=== PATIENT | male | born 1960 ===

== ENCOUNTER 2017-10-09 20:15 | Emergency (ER) | payer SELFPAY ==
[2017-10-09 20:58] VITALS: BP 106/67; RESP 18; TEMP 98.6; O2SAT 98
[2017-10-09] MEDS ORDERED: Alum-Mag Hydrox-Simethicone Susp (30 mL) PO ONE (21:37)
--- NOTE | 2017-10-09 21:44 | ED PDOC ---
HPI: Abdomen Time Seen by Provider: 10/09/17 21:21 Chief Complaint (Nursing): Abdominal Pain Chief Complaint (Provider): Abdominal pain History Per: Patient History/Exam Limitations: no limitations Onset/Duration Of Symptoms: Hrs (6) Current Symptoms Are (Timing): Better Severity: Mild Location Of Pain/Discomfort: Epigastric Quality Of Discomfort: "Pain" Associated Symptoms: Chest Pain (resolved). denies: Fever, Chills, Nausea, Vomiting, Diarrhea, Loss Of Appetite, Back Pain, Constipation, Urinary Symptoms Exacerbating Factors: None Alleviating Factors: None Last Bowel Movement: Today Additional History Per: Patient Additional Complaint(s): 57 y/o male complaining of epigastric pain that began this afternoon described as constant with radiation into the chest. Currently the pain is only in the abdomen and milder than onset. He had abdominal pain years ago, and none since. Patient denies any nausea, vomiting, diarrhea, shortness of breath, or other complaint. Past Medical History Reviewed: Historical Data, Nursing Documentation, Vital Signs Vital Signs: Last Vital Signs Temp 98.6 F 10/09/17 20:54 Pulse 70 10/10/17 04:06 Resp 18 10/09/17 20:54 BP 106/67 10/09/17 20:54 Pulse Ox 98 10/10/17 04:06 - Medical History PMH: No Chronic Diseases - Surgical History Surgical History: Cholecystectomy - Family History Family History: States: No Known Family Hx - Social History Current smoker - smoking cessation education provided: No Alcohol: Social Drugs: Denies - Home Medications Home Medications: Ambulatory Orders Medication Instructions Recorded Famotidine [Pepcid] 20 mg PO BID #14 tab 05/21/15 Esomeprazole Magnesium [Nexium] 20 mg PO DAILY #30 capsule. 10/10/17 Famotidine [Pepcid] 20 mg PO DAILY #14 tab 10/10/17 - Allergies Allergies/Adverse Reactions: Allergies Allergy/AdvReac Type Severity Reaction Status Date / Time No Known Allergies Allergy Verified 05/21/15 21:35 Review of Systems ROS Statement: Except As Marked, All Systems Reviewed And Found Negative Gastrointestinal: Positive for: Abdominal Pain Physical Exam - Reviewed Nursing Documentation Reviewed: Yes Vital Signs Reviewed: Yes - Physical Exam Appears: Positive for: Well, Non-toxic, No Acute Distress Head Exam: Positive for: ATRAUMATIC, NORMAL INSPECTION, NORMOCEPHALIC Skin: Positive for: Normal Color, Warm, DRY Eye Exam: Positive for: EOMI, Normal appearance, PERRL ENT: Positive for: Normal ENT Inspection Neck: Positive for: Normal, Painless ROM Cardiovascular/Chest: Positive for: Regular Rate, Rhythm Respiratory: Positive for: CNT, Normal Breath Sounds Gastrointestinal/Abdominal: Positive for: Normal Exam, Soft Back: Positive for: Normal Inspection Extremity: Positive for: Normal ROM Neurologic/Psych: Positive for: Alert, Oriented - Laboratory Results Result Diagrams: 10/09/17 22:11 10/09/17 22:11 - ECG ECG: Positive for: Interpreted By Me, Viewed By Me ECG Rhythm: Positive for: Normal QRS, Normal ST Segment, Sinus Rhythm. Negative for: ST/T Changes Rate: 70 O2 Sat by Pulse Oximetry: 98 (RA) Pulse Ox Interpretation: Normal - Progress Re-evaluation Time: 03:59 Condition: Re-examined, Improved Medical Decision Making Medical Decision Making: Impression: abdominal pain associated chest pain. Differential diagnosis includes gastritis, pancreatitis, less likely atypical ACS and appendicitis Plan: - Labs - EKG - Pepcid - Maalox - CT Abdomen/Pelvis CT Abdomen: FINDINGS: Artifacts: Limited due to motion and misregistration artifacts. Lung bases: Bibasilar right mid lobe and lingula hazy patchy nonspecific infiltrates are present, consistent with atelectasis or pneumonia. ABDOMEN: Liver: Fatty liver. Gallbladder and bile ducts: Cholecystectomy. Pancreas: Unremarkable. No mass. No ductal dilation. Spleen: Unremarkable. No splenomegaly. Adrenals: Unremarkable. No mass. Kidneys and ureters: Left parapelvic renal cyst measuring 3.8 cm. No hydronephrosis. Stomach and bowel: Diverticulosis. Nonspecific gastric distention likely due to recent ingestion versus delayed emptying. No mucosal thickening. Appendix: Normal appendix. PELVIS: Bladder: Unremarkable. Reproductive: Possible hydrocele. Mild enlargement of prostate gland. ABDOMEN and PELVIS: Intraperitoneal space: Unremarkable. No free air. No significant fluid collection. Bones/joints: L5-S1 disc herniation seen on image 84 series 602. No acute fracture. No dislocation. Soft tissues: Bilateral inguinal herniation of fat. Vasculature: Unremarkable. No abdominal aortic aneurysm. Lymph nodes: Unremarkable. No enlarged lymph nodes. IMPRESSION: No acute findings. Scribe Attestation: Documented by Joan Damian, acting as a scribe for Keren Amin MD. Provider Scribe Attestation: All medical record entries made by the Scribe were at my direction and personally dictated by me. I have reviewed the chart and agree that the record accurately reflects my personal performance of the history, physical exam, medical decision making, and the department course for this patient. I have also personally directed, reviewed, and agree with the discharge instructions and disposition. Disposition - Clinical Impression Clinical Impression: Abdominal pain, Chest pain - Patient ED Disposition Is Patient to be Admitted: No Doctor Will See Patient In The: Office Counseled Patient/Family Regarding: Studies Performed, Diagnosis, Need For Followup - Disposition Referrals: [facility] [Outside] Disposition: Routine/Home Disposition Time: 03:59 Condition: GOOD Additional Instructions: Take your medications as instructed. Return for worsening. Follow up with your PCP in 2-3 days. Prescriptions: Esomeprazole Magnesium [Nexium] 20 mg PO DAILY #30 capsule. Famotidine [Pepcid] 20 mg PO DAILY #14 tab Instructions: Gastritis, Chest Pain Print Language: [place] GLADYS Risk Score for UA/NSTEMI - GLADYS Risk Score Age > 64: NO 3 or more CAD Risk Factors: NO Known CAD (Stenosis greater than 50%): NO Aspirin use in past 7 days: NO Severe Angina: NO EKG ST changes greater than 0.5mm: NO Positive Cardiac Marker: NO GLADYS Score: 0 Risk %: 5%
[2017-10-09] MEDS ORDERED: Alum-Mag Hydrox-Simethicone Susp (30 mL) ONE (21:45)
[2017-10-09 22:14] LABS: BASO % 0.3 % (0.0-2.0); EOS # 0.1 K/uL (0.0-0.7); EOS % 1.1 % (0.0-4.0); LYMPH # 0.9 K/uL (1.0-4.3); LYMPH % 7.2 % (20.0-40.0); MEAN CELL VOLUME 92.6 fl (80.0-94.0); MEAN CORPUSCULAR HEMOGLOBIN 30.6 pg (27.0-31.0); MEAN PLATELET VOLUME 8.1 fl (7.2-11.7); MONO # 0.7 K/uL (0.0-0.8); MONO % 5.8 % (0.0-10.0); NEUT # 10.1 K/uL (1.8-7.0); NEUT % 85.6 % (50.0-75.0); PLATELET COUNT 243 K/uL (130-400); RBC 4.91 Mil/uL (4.40-5.90); RED CELL DISTRIBUTION WIDTH 13.9 % (11.5-14.5); WHITE BLOOD COUNT 11.8 K/uL (4.8-10.8)
[2017-10-09 22:26] LABS: ALB/GLOB RATIO 1.1 (1.0-2.1); ALBUMIN 3.8 g/dL (3.5-5.0); ALT/SGPT 144 U/L (21-72); AST/SGOT 214 U/L (17-59); BLOOD UREA NITROGEN 15 mg/dl (9-20); CALCIUM 8.7 mg/dL (8.4-10.2); GFR AFRICAN-AMERICAN > 60; GFR NON-AFRICAN AMERICAN > 60; LIPASE 86 U/L (23-300)
[2017-10-10 00:14] LABS: BANDS 1 % (0-2); EOSINOPHIL 2 % (0-7); LYMPHOCYTE 8 % (20-50); MONOCYTE 5 % (0-10); NEUTROPHIL 80 % (42-75); REACTIVE LYMPHOCYTES 4 % (0-0); TOTAL CELLS COUNTED 100
[2017-10-10 00:15] LABS: ANISOCYTOSIS SLIGHT; LARGE PLATELETS PRESENT; PLATELET ESTIMATE NORMAL (NORMAL); STOMATOCYTES SLIGHT; TEARDROP CELLS SLIGHT
[2017-10-10] MEDS ORDERED: Iohexol 300 100 ML IJ ONE (01:12)
[2017-10-10] MEDS ORDERED: Sodium Chloride 0.9% 100 ML ONE (01:12)
--- NOTE | 2017-10-10 02:52 | CT ---
EXAM: CT Abdomen and Pelvis With Intravenous Contrast CLINICAL HISTORY: 57 years old, male; Pain; Abdominal pain; Epigastric; Additional info: Epigastric pain TECHNIQUE: Axial computed tomography images of the abdomen and pelvis with intravenous contrast. All CT scans at this facility use one or more dose reduction techniques, viz.: automated exposure control; ma/kV adjustment per patient size (including targeted exams where dose is matched to indication; i.e. head); or iterative reconstruction technique. 657 images are submitted. Axial images are submitted in soft tissue and lung windows. Coronal and sagittal reformatted images were created and reviewed. CONTRAST: 95 mL of omnipaque 300 administered intravenously. COMPARISON: No relevant prior studies available. FINDINGS: Artifacts: Limited due to motion and misregistration artifacts. Lung bases: Bibasilar right mid lobe and lingula hazy patchy nonspecific infiltrates are present, consistent with atelectasis or pneumonia. ABDOMEN: Liver: Fatty liver. Gallbladder and bile ducts: Cholecystectomy. Pancreas: Unremarkable. No mass. No ductal dilation. Spleen: Unremarkable. No splenomegaly. Adrenals: Unremarkable. No mass. Kidneys and ureters: Left parapelvic renal cyst measuring 3.8 cm. No hydronephrosis. Stomach and bowel: Diverticulosis. Nonspecific gastric distention likely due to recent ingestion versus delayed emptying. No mucosal thickening. Appendix: Normal appendix. PELVIS: Bladder: Unremarkable. Reproductive: Possible hydrocele. Mild enlargement of prostate gland. ABDOMEN and PELVIS: Intraperitoneal space: Unremarkable. No free air. No significant fluid collection. Bones/joints: L5-S1 disc herniation seen on image 84 series 602. No acute fracture. No dislocation. Soft tissues: Bilateral inguinal herniation of fat. Vasculature: Unremarkable. No abdominal aortic aneurysm. Lymph nodes: Unremarkable. No enlarged lymph nodes. IMPRESSION: No acute findings.
[2017-10-10 04:01] VITALS: PULSE 70
--- NOTE | 2017-10-10 11:45 | CARD ---
APPROVED REPORT EKG Measurement Heart [id number] <Conclusion> Normal sinus rhythm Possible Left atrial enlargement Borderline ECG
== END 2017-10-10 05:43 | disposition home or self-care (01) ==
LOC: H.ER 20:15
DX: R10.13 Epigastric pain (principal); R07.9 Chest pain, unspecified
CPT/HCPCS: 74177; 80053; 83690; 84484; 85025; 93005; 96374; 99283; Q9967